=== PATIENT | male | born 1940 | race African-American/Black ===

== ENCOUNTER → 2023-08-06 | Outpatient (CLI) | payer OTHER, MEDICARE | LOC: M PLAIMG 13:36 | PROVIDERS: ATTEND Family Medicine | DX: R93.1 Abnormal findings on diagnostic imaging of heart and coronary circulation (principal); I35.8 Other nonrheumatic aortic valve disorders ==

== ENCOUNTER → 2023-10-22 | Outpatient (CLI) | payer OTHER, MEDICARE | LOC: M RAD 06:45 | PROVIDERS: ATTEND Internal Medicine Nephrology | DX: N18.32 Chronic kidney disease, stage 3b (principal); I70.1 Atherosclerosis of renal artery ==

== ENCOUNTER 2024-03-26 07:32 | Emergency (ER) | payer MEDICARE, OTHER ==
[~2024-03-26] VITALS: Ht 172.7 cm; Wt 77.3 kg
[2024-03-26 08:10] LABS: BASO % 0.5 % (0.0-1.0); EOS # 0.4 10^3/uL (0.0-0.5); EOS % 6.2 % (0.0-3.0); HEMATOCRIT 45.5 % (42.0-52.0); LYMPH # 2.1 10^3/uL (1.5-5.0); LYMPH % 33.3 % (24.0-44.0); MEAN CORPUSCULAR HEMOGLOBIN 33.9 pg (27.0-33.0); MEAN CORPUSCULAR VOLUME 102.7 fl (80.0-96.0); MONO # 0.8 10^3/uL (0.0-0.8); MONO % 12.8 % (2.0-8.0); NEUTROPHILS # 2.9 10^3/uL (1.5-8.5); PLATELET COUNT, AUTOMATED 212 10^3/uL (150-450); RED BLOOD COUNT 4.43 10^6/uL (4.30-6.10); WHITE BLOOD COUNT 6.2 10^3/uL (4.0-10.0)
[2024-03-26 08:23] LABS: INR 1.18; PROTHROMBIN TIME 14.7 SECONDS (12.5-14.5)
[2024-03-26] MEDS: ASPIRIN 81MG CHEW TABLET PO ONE (08:25)
[2024-03-26 08:26] VITALS: BP 151/78
[2024-03-26] MEDS: NITROGLYCERIN 0.4MG SUBL TABLET SL PRN (08:26)
[2024-03-26 09:18] LABS: LIPASE 57 U/L (12-53)
[2024-03-26 09:21] LABS: ALBUMIN 4.2 G/DL (3.2-5.2); ALKALINE PHOSPHATASE 130 U/L (46-116); ALT/SGPT 33 U/L (7.0-40); AST/SGOT 26 U/L (<34); BILIRUBIN,DIRECT 0.4 MG/DL (<0.4); BILIRUBIN,TOTAL 1.1 MG/DL (0.3-1.2); BLOOD UREA NITROGEN 34 MG/DL (9-23); CALCIUM LEVEL 10.3 MG/DL (8.3-10.6); CARBON DIOXIDE LEVEL 23 MMOL/L (20-31); CHLORIDE LEVEL 107 MMOL/L (98-107); CREATININE FOR GFR 1.41 MG/DL (0.70-1.30); GLOMERULAR FILTRATION RATE > 60.0 (>35); GLUCOSE, FASTING 160 MG/DL (74-106); SODIUM LEVEL 140 MMOL/L (136-145); TOTAL PROTEIN 7.5 G/DL (5.7-8.2)
[2024-03-26 09:23] LABS: CK-MB VALUE MASS 3.2 NG/ML (<3.6); CPK CREATINE PHOSPHOKINASE 320 U/L (46-171); FREE T4 1.19 NG/DL (0.89-1.76); THYROID STIMULATING HORMONE 2.174 uIU/ML (0.55-4.78)
[2024-03-26 09:30] LABS: CK-MB VALUE MASS 3.2 NG/ML (<3.6)
[2024-03-26 09:31] LABS: MB/CK RELATIVE INDEX 1.15 (< OR =4)
[2024-03-26] MEDS ORDERED: ISOVUE-370 76% 100ML VIAL As Ordered ONE (09:57)
[2024-03-26] MEDS ORDERED: FINA5TAB2 PO (13:31)
[2024-03-26] MEDS ORDERED: ASPI81TA26 PO (13:31)
[2024-03-26] MEDS ORDERED: JARD1TAB PO (13:31)
[2024-03-26] MEDS ORDERED: TELM1TAB33 PO (13:31)
[2024-03-26] MEDS ORDERED: ATOR80TA59 PO (13:31)
[2024-03-26] MEDS ORDERED: D 1010004 PO (13:31)
[2024-03-26] MEDS ORDERED: EZET10TA21 PO (13:31)
[2024-03-26 14:11] VITALS: BP 138/75; TEMP 97.5; O2SAT 99
== END 2024-03-26 14:20 | disposition home or self-care (01) ==
LOC: M ED 07:32
DX: R07.9 Chest pain, unspecified (principal); M25.512 Pain in left shoulder; M19.012 Primary osteoarthritis, left shoulder; I44.0 Atrioventricular block, first degree; E11.9 Type 2 diabetes mellitus without complications; I10 Essential (primary) hypertension; E78.5 Hyperlipidemia, unspecified; N18.2 Chronic kidney disease, stage 2 (mild); Z79.82 Long term (current) use of aspirin; Z79.02 Long term (current) use of antithrombotics/antiplatelets; Z79.899 Other long term (current) drug therapy
CPT/HCPCS: 36415; 71045; 71275; 73030; 80048; 80076; 82550; 82553; 83690; 84439; 84443; 84484; 85025; 85610; 93005; 93041; 94760; 99285; Q9967

== ENCOUNTER → 2024-07-02 | Outpatient (CLI) | payer MEDICARE, OTHER ==
[~2024-07-02] MED LIST: ASPI81TA26 PO; ATOR80TA59 PO; D 1010004 PO; EZET10TA21 PO; FINA5TAB2 PO; JARD1TAB PO; TELM1TAB33 PO
== END ==
LOC: M EKG 16:02
PROVIDERS: ATTEND Internal Medicine Cardiovascular Disease
DX: I47.9 Paroxysmal tachycardia, unspecified (principal); Z53.9 Procedure and treatment not carried out, unspecified reason

== ENCOUNTER 2024-11-04 12:33 | Emergency (ER) | payer MEDICARE, OTHER ==
[~2024-11-04] VITALS: Ht 175.3 cm; Wt 79.7 kg
[2024-11-04 13:13] LABS: BASO % 0.4 % (0.0-1.0); EOS # 0.5 10^3/uL (0.0-0.5); EOS % 6.4 % (0.0-3.0); HEMATOCRIT 44.9 % (42.0-52.0); HEMOGLOBIN 14.5 g/dl (13.5-17.5); LYMPH # 2.1 10^3/uL (1.5-5.0); LYMPH % 30.4 % (24.0-44.0); MEAN CORPUSCULAR HEMOGLOBIN 33.3 pg (27.0-33.0); MEAN CORPUSCULAR HGB CONC 32.3 g/dl (32.0-36.5); MONO # 0.8 10^3/uL (0.0-0.8); MONO % 11.6 % (2.0-8.0); NEUTROPHILS # 3.6 10^3/uL (1.5-8.5); NEUTROPHILS % 50.9 % (36.0-66.0); PLATELET COUNT, AUTOMATED 224 10^3/uL (150-450); RED BLOOD COUNT 4.36 10^6/uL (4.30-6.10)
[2024-11-04] MEDS: ASPIRIN 81MG CHEW TABLET PO ONE (13:25)
[2024-11-04 13:43] LABS: CK-MB VALUE MASS 4.6 NG/ML (<3.6)
[2024-11-04 13:45] LABS: MB/CK RELATIVE INDEX 1.25 (< OR =4)
[2024-11-04 13:46] LABS: ALBUMIN 4.1 G/DL (3.2-5.2); BILIRUBIN,DIRECT 0.5 MG/DL (<0.4); BILIRUBIN,TOTAL 1.3 MG/DL (0.3-1.2); CALCIUM LEVEL 9.4 MG/DL (8.3-10.6); CREATININE FOR GFR 1.49 MG/DL (0.70-1.30); GLOMERULAR FILTRATION RATE 46.3 (>35); MAGNESIUM LEVEL 1.9 MG/DL (1.8-2.4); PHOSPHORUS LEVEL 2.4 MG/DL (2.4-5.1); POTASSIUM SERUM 3.9 MMOL/L (3.5-5.1); TOTAL PROTEIN 7.1 G/DL (5.7-8.2)
[2024-11-04 13:47] LABS: THYROID STIMULATING HORMONE 6.135 uIU/ML (0.55-4.78)
[2024-11-04 13:48] LABS: FREE T4 0.99 NG/DL (0.89-1.76)
[2024-11-04 14:50] LABS: CK-MB VALUE MASS 4.3 NG/ML (<3.6); MB/CK RELATIVE INDEX 1.37 (< OR =4)
[2024-11-04 16:46] LABS: CK-MB VALUE MASS 3.6 NG/ML (<3.6); MB/CK RELATIVE INDEX 1.33 (< OR =4)
[2024-11-04 18:06] LABS: INR 1.01; PROTHROMBIN TIME 13.6 SECONDS (12.5-14.5)
[2024-11-04] MEDS: HEPARIN SOD 5000UNITS/ML 1ML VIAL/SYRINGE IV ONE (18:13)
[2024-11-04] MEDS: HEPARIN DRIP 25,000 UNITS in IV 1 EA IV SCH (18:15)
[2024-11-04 22:48] VITALS: BP 127/70; TEMP 98.4; O2SAT 98
== END 2024-11-04 23:07 | disposition short-term general hospital (02) ==
LOC: M ED 12:33
DX: I20.0 Unstable angina (principal); I44.0 Atrioventricular block, first degree; I51.7 Cardiomegaly; E78.5 Hyperlipidemia, unspecified; E11.9 Type 2 diabetes mellitus without complications; N18.9 Chronic kidney disease, unspecified; I10 Essential (primary) hypertension; Z79.82 Long term (current) use of aspirin; Z79.02 Long term (current) use of antithrombotics/antiplatelets; Z79.899 Other long term (current) drug therapy